=== PATIENT | female | born 1970 | race Caucasian/White ===

== ENCOUNTER → 2016-05-04 | Outpatient (CLI) | payer OTHER ==
[~2016-05-04] MED LIST: ABILIFY2 MG PO; CIPROFLOXACIN 55 M1 OT; ERYTHROMYCIN OPH1 GM OPH; GABAPENTIN100 M2 PO; LEVAQUIN750 M1 PO; PRISTIQ50 MG PO; SEROQUEL25 MG PO; SINGULAIR10 M1 PO; SINGULAIR5 MG PO; VICODIN 5/500 505 MG PO; ZOFRAN ODT4 MG SL; ZYRTEC10 M3 PO
--- NOTE | ~2016-05-04 | PF ---
[place], [place] PULMONARY FUNCTION TEST NAME: DAGO MARTINEZ [facility] #: [id number] UNIT #: [id number] ROOM: DOCTOR: VERNA SAINI MD,JADON BIRTHDATE: [birth year] DOS: 05/04/2016 ORDERED BY: Wesly Dowling, the nurse practitioner. HISTORY: The patient reported 45-year-old female, height of 63 inches, weight of 107 pounds, BMI of 19.0. The patient reported symptoms of productive cough with dyspnea with exertion and frequent wheezing. Tobacco use noted chronic as 1 pack of cigarettes per day for 22 years. SPIROMETRY: The FVC was recorded at 2.69 liters as 76% predicted value, mildly decreased without any improvement occurred postbronchodilator test. The FEV1 recorded 2.31 liters, 81% predicted value without any changes occurred in postbronchodilator test as well. Ratio of FEV1/FVC was recorded 86%. Flow volume loop for patient was assessed and was suggestive of mild obstructive airway pattern. The patient's lung volumes, thoracic gas volume recorded 121%, residual volume of 134%, total lung capacity 111%. RV/TLC ratio of 123%. The lung volume suggestive of mild air trapping as well. The patient's lung diffusion recorded 69%, mildly decreased without correction of carbon monoxide or hemoglobin values. Airway resistance and passive conductance were noted as normal with partial improvement after bronchodilators. FINAL IMPRESSION: The test was suggestive of possibility of very mild reversible obstructive lung disease. JADON GILLESPIE MD CM:PFREPORT:PULMONARY FUNCTION TEST [id number] JADON SAINI MD
== END | disposition home or self-care (01) ==
LOC: CP 10:38
DX: J40 Bronchitis, not specified as acute or chronic (principal)

== ENCOUNTER 2017-05-15 13:56 | Emergency (ER) | payer OTHER ==
[~2017-05-15] VITALS: Ht 157.4 cm; Wt 49.9 kg
[2017-05-15 14:00] VITALS: BP 103/66
[2017-05-15] MEDS ORDERED: LATU40TA1 PO (14:02)
[2017-05-15] MEDS ORDERED: QUETIAPINE FUMA25 MG PO (14:02)
[2017-05-15] MEDS ORDERED: Motrin,Rufen800 MG PO (15:24)
== END 2017-05-15 15:42 | disposition home or self-care (01) ==
LOC: ED 13:56
DX: S62.636A Displaced fracture of distal phalanx of right little finger, initial encounter for closed fracture (principal); F17.200 Nicotine dependence, unspecified, uncomplicated; F10.10 Alcohol abuse, uncomplicated; Z91.041 Radiographic dye allergy status; Z88.2 Allergy status to sulfonamides; Z79.899 Other long term (current) drug therapy; Z98.51 Tubal ligation status; W20.8XXA Other cause of strike by thrown, projected or falling object, initial encounter; Y93.89 Activity, other specified; Y92.89 Other specified places as the place of occurrence of the external cause; Y99.8 Other external cause status

== ENCOUNTER → 2017-10-16 | Outpatient (CLI) | payer OTHER ==
[~2017-10-16] MED LIST changes: +LATU40TA1 PO; +Motrin,Rufen800 MG PO; +QUETIAPINE FUMA25 MG PO
[2017-10-16 10:54] LABS: BASO # 0.1 10*3/uL (0.0-0.1); BASO % 0.9 % (0.0-1.0); EOS # 0.5 10*3/uL (0.0-0.4); EOS % 5.3 % (1.0-4.0); HEMATOCRIT 42.6 % (37.0-47.0); HEMOGLOBIN 13.7 g/dl (12.0-16.0); LYMPH # 2.2 10*3/uL (1.3-4.4); LYMPH % 25.1 % (27.0-41.0); MEAN CELL VOLUME 96.2 fl (81.0-99.0); MEAN CORPUSCULAR HGB 30.9 pg (27.0-31.0); MEAN CORPUSCULAR HGB CONC 32.2 g/dl (33.0-37.0); MEAN PLATELET VOLUME 9.2 fl (9.6-12.3); MONO # 0.5 10*3/uL (0.1-1.0); MONO % 5.2 % (3.0-9.0); NEUT # 5.6 10*3/uL (2.3-7.9); NEUT % 63.3 % (47.0-73.0); PLATELET COUNT AUTOMATED 318 10*3/uL (130-400); RED BLOOD COUNT 4.43 10*6/uL (4.10-5.10); RED CELL DISTRI WIDTH 12.4 % (0-14.5); WHITE BLOOD COUNT 8.9 10*3/uL (4.8-10.8)
[2017-10-16 11:10] LABS: BILIRUBIN NEGATIVE (NEGATIVE); BLOOD 1+ (NEGATIVE); CLARITY SL CLOUDY (CLEAR); COLOR YELLOW (YELLOW); GLUCOSE NEGATIVE (NEGATIVE); KETONE NEGATIVE (NEGATIVE); LEUKO ESTERASE NEGATIVE (NEGATIVE); NITRITE NEGATIVE (NEGATIVE); SPECIFIC GRAVITY 1.025 (1.005-1.030); UROBILINOGEN 0.2 E.U./dl (0.2-1.0)
[2017-10-16 11:20] LABS: MUCOUS 1+
[2017-10-16 11:21] LABS: WBC 0-2 wbc/hpf (0-5)
[2017-10-16 11:22] LABS: ALBUMIN 3.8 gm/dl (3.1-4.5); ALKALINE PHOSPHATASE 83 U/L (45-117); BUN 16 mg/dl (7-24); CHLORIDE 104 mmol/L (98-107); CREATININE 0.83 mg/dL (0.55-1.02); POTASSIUM 4.8 mmol/L (3.5-5.1); SGOT/AST 13 IU/L (3-35); SGPT/ALT 15 U/L (12-78); SODIUM 138 mmol/L (136-145); TOTAL PROTEIN 7.6 gm/dL (6.4-8.2)
== END | disposition home or self-care (01) ==
LOC: LAB 10:25
PROVIDERS: Nurse Practitioner Psychiatric/Mental Health
DX: F31.63 Bipolar disorder, current episode mixed, severe, without psychotic features (principal)

== ENCOUNTER 2018-08-07 13:16 | Emergency (ER) | payer OTHER ==
[~2018-08-07] VITALS: Ht 160 cm; Wt 47.2 kg
[2018-08-07 13:16] VITALS: BP 124/72
[2018-08-07] MEDS ORDERED: DIFLUCAN150 MG PO (15:28)
[2018-08-07] MEDS ORDERED: ZITHROMAX250 MG PO (15:28)
== END 2018-08-07 15:25 | disposition home or self-care (01) ==
LOC: ED 13:16
DX: J40 Bronchitis, not specified as acute or chronic (principal); F17.200 Nicotine dependence, unspecified, uncomplicated; Z79.899 Other long term (current) drug therapy; Z88.2 Allergy status to sulfonamides; Z98.51 Tubal ligation status; Z98.890 Other specified postprocedural states

== ENCOUNTER → 2018-09-10 | Outpatient (CLI) | payer OTHER ==
[~2018-09-10] MED LIST changes: +DIFLUCAN150 MG PO; +ZITHROMAX250 MG PO
[2018-09-10 14:48] LABS: BILIRUBIN NEGATIVE (NEGATIVE); BLOOD TRACE-INTACT (NEGATIVE); CLARITY CLEAR (CLEAR); COLOR YELLOW (YELLOW); GLUCOSE NEGATIVE (NEGATIVE); KETONE NEGATIVE (NEGATIVE); LEUKO ESTERASE NEGATIVE (NEGATIVE); NITRITE NEGATIVE (NEGATIVE); SPECIFIC GRAVITY <= 1.005 (1.005-1.030); UROBILINOGEN 0.2 E.U./dl (0.2-1.0)
[2018-09-10 14:57] LABS: BASO # 0.1 10*3/uL (0.0-0.1); BASO % 0.5 % (0.0-1.0); EOS # 0.2 10*3/uL (0.0-0.4); EOS % 2.3 % (1.0-4.0); HEMATOCRIT 40.3 % (37.0-47.0); HEMOGLOBIN 12.9 g/dl (12.0-16.0); LYMPH # 2.3 10*3/uL (1.3-4.4); LYMPH % 21.4 % (27.0-41.0); MEAN CELL VOLUME 96.2 fl (81.0-99.0); MEAN CORPUSCULAR HGB 30.8 pg (27.0-31.0); MEAN PLATELET VOLUME 9.2 fl (9.6-12.3); MONO # 0.5 10*3/uL (0.1-1.0); MONO % 5.1 % (3.0-9.0); NEUT # 7.4 10*3/uL (2.3-7.9); NEUT % 70.3 % (47.0-73.0); PLATELET COUNT AUTOMATED 338 10*3/uL (130-400); RED BLOOD COUNT 4.19 10*6/uL (4.10-5.10); RED CELL DISTRI WIDTH 13.1 % (0-14.5); WHITE BLOOD COUNT 10.6 10*3/uL (4.8-10.8)
[2018-09-10 15:00] LABS: BACTERIA TRACE; RBC 0-2 rbc/hpf (0-2)
[2018-09-10 15:19] LABS: ALBUMIN 3.9 gm/dl (3.1-4.5); ALKALINE PHOSPHATASE 86 U/L (45-117); BUN 16 mg/dl (7-24); CHLORIDE 103 mmol/L (98-107); CREATININE 0.99 mg/dL (0.55-1.02); POTASSIUM 3.8 mmol/L (3.5-5.1); SGOT/AST 24 IU/L (3-35); SGPT/ALT 21 U/L (12-78); SODIUM 138 mmol/L (136-145); T3 UPTAKE 37 % (31-39); THYROXINE (T4) TOTAL 9.1 ug/dl (4.8-13.9); TOTAL PROTEIN 7.8 gm/dL (6.4-8.2)
== END | disposition home or self-care (01) ==
LOC: LAB 14:12
PROVIDERS: Nurse Practitioner Psychiatric/Mental Health
DX: F31.63 Bipolar disorder, current episode mixed, severe, without psychotic features (principal)

== ENCOUNTER 2019-04-02 13:48 | Emergency (ER) | payer OTHER ==
[~2019-04-02] VITALS: Ht 157.4 cm; Wt 49.9 kg
[2019-04-02 13:54] VITALS: BP 129/75
[2019-04-02] MEDS ORDERED: PROAIR HFA8.5 GM INH (15:45)
[2019-04-02] MEDS ORDERED: TESSALON PERLE100 M1 PO (15:45)
== END 2019-04-02 16:13 | disposition home or self-care (01) ==
LOC: ED 13:48
DX: B34.9 Viral infection, unspecified (principal); J02.9 Acute pharyngitis, unspecified; M79.10 Myalgia, unspecified site; R05 Cough; R53.83 Other fatigue; R63.8 Other symptoms and signs concerning food and fluid intake; J45.909 Unspecified asthma, uncomplicated; F17.200 Nicotine dependence, unspecified, uncomplicated; Z79.899 Other long term (current) drug therapy; Z88.2 Allergy status to sulfonamides

== ENCOUNTER 2019-11-18 15:50 | Emergency (ER) | payer OTHER ==
[~2019-11-18] VITALS: Wt 49.9 kg
[~2019-11-18 15:50] MED LIST changes: +PROAIR HFA8.5 GM INH; +TESSALON PERLE100 M1 PO
[2019-11-18 16:23] LABS: BASO # 0.1 10*3/uL (0.0-0.1); BASO % 0.8 % (0.0-1.0); EOS # 0.2 10*3/uL (0.0-0.4); EOS % 2.5 % (1.0-4.0); HEMATOCRIT 38.2 % (37.0-47.0); LYMPH # 2.6 10*3/uL (1.3-4.4); LYMPH % 32.5 % (27.0-41.0); MEAN CELL VOLUME 93.6 fl (81.0-99.0); MEAN CORPUSCULAR HGB 30.4 pg (27.0-31.0); MEAN CORPUSCULAR HGB CONC 32.5 g/dl (33.0-37.0); MEAN PLATELET VOLUME 9.1 fl (9.6-12.3); MONO # 0.5 10*3/uL (0.1-1.0); MONO % 5.7 % (3.0-9.0); NEUT # 4.6 10*3/uL (2.3-7.9); NEUT % 58.2 % (47.0-73.0); PLATELET COUNT AUTOMATED 338 10*3/uL (130-400); RED BLOOD COUNT 4.08 10*6/uL (4.10-5.10); RED CELL DISTRI WIDTH 12.8 % (0-14.5); WHITE BLOOD COUNT 7.9 10*3/uL (4.8-10.8)
[2019-11-18 16:39] LABS: ALBUMIN 3.5 gm/dl (3.1-4.5); ALKALINE PHOSPHATASE 84 U/L (45-117); BUN 11 mg/dl (7-24); CHLORIDE 109 mmol/L (98-107); CREATININE 1.12 mg/dL (0.55-1.02); POTASSIUM 4.4 mmol/L (3.5-5.1); SGOT/AST 18 IU/L (3-35); SGPT/ALT 23 U/L (12-78); SODIUM 140 mmol/L (136-145); TOTAL PROTEIN 7.2 gm/dL (6.4-8.2)
[2019-11-18 17:04] VITALS: BP 130/72
[2019-11-18] MEDS ORDERED: VISTARIL25 MG PO (17:04)
== END 2019-11-18 17:05 | disposition home or self-care (01) ==
LOC: ED 15:50
PROVIDERS: Nurse Practitioner Family
DX: F41.9 Anxiety disorder, unspecified (principal); J45.909 Unspecified asthma, uncomplicated; Z88.2 Allergy status to sulfonamides; Z79.899 Other long term (current) drug therapy

== ENCOUNTER 2020-02-11 18:35 | Emergency (ER) | payer OTHER ==
[~2020-02-11] VITALS: Ht 160 cm; Wt 54.4 kg
[~2020-02-11 18:35] MED LIST changes: +VISTARIL25 MG PO
[2020-02-11 18:42] VITALS: BP 136/94
== END 2020-02-11 19:41 | disposition home or self-care (01) ==
LOC: ED 18:35
DX: F41.9 Anxiety disorder, unspecified (principal); Z20.828 Contact with and (suspected) exposure to other viral communicable diseases; Z88.2 Allergy status to sulfonamides; Z79.899 Other long term (current) drug therapy

== ENCOUNTER 2020-09-14 21:03 | Emergency (ER) | payer OTHER | END 2020-09-14 23:58 | disposition left against medical advice (07) | LOC: ED 21:03 | DX: H92.20 Otorrhagia, unspecified ear (principal); Z53.21 Procedure and treatment not carried out due to patient leaving prior to being seen by health care provider ==

== ENCOUNTER → 2020-11-08 | Outpatient (CLI) | payer OTHER ==
[2020-11-08 12:59] LABS: BASO # 0.1 10*3/uL (0.0-0.1); BASO % 0.9 % (0.0-1.0); EOS # 0.3 10*3/uL (0.0-0.4); EOS % 4.3 % (1.0-4.0); HEMATOCRIT 40.6 % (37.0-47.0); LYMPH # 2.5 10*3/uL (1.3-4.4); LYMPH % 32.4 % (27.0-41.0); MEAN CELL VOLUME 95.5 fl (81.0-99.0); MEAN CORPUSCULAR HGB 30.6 pg (27.0-31.0); MEAN PLATELET VOLUME 8.9 fl (9.6-12.3); MONO # 0.5 10*3/uL (0.1-1.0); MONO % 6.6 % (3.0-9.0); NEUT # 4.4 10*3/uL (2.3-7.9); NEUT % 55.7 % (47.0-73.0); PLATELET COUNT AUTOMATED 405 10*3/uL (130-400); RED BLOOD COUNT 4.25 10*6/uL (4.10-5.10); RED CELL DISTRI WIDTH 12.7 % (0-14.5); RETICULOCYTE % 0.94 % (0.50-2.50); WHITE BLOOD COUNT 7.9 10*3/uL (4.8-10.8)
[2020-11-08 13:02] LABS: BILIRUBIN Negative (Negative); BLOOD Negative (Negative); CLARITY Cloudy (Clear); COLOR Yellow (Yellow); GLUCOSE Negative (Negative); KETONE Trace (Negative); LEUKO ESTERASE 2+ (Negative); NITRITE Negative (Negative); SPECIFIC GRAVITY 1.025 (1.001-1.030)
[2020-11-08 13:11] LABS: BACTERIA 2+; RBC 0-2 rbc/hpf (0-2)
[2020-11-08 13:12] LABS: HYALINE CAST 0-2; MUCOUS TRACE; URIC ACID CRYSTALS N
[2020-11-08 13:13] LABS: ALBUMIN 3.7 gm/dl (3.1-4.5); ALKALINE PHOSPHATASE 86 U/L (45-117); BUN 14 mg/dl (7-24); CHLORIDE 108 mmol/L (98-107); CHOLESTEROL 172 mg/dL (<200); CREATININE 0.87 mg/dL (0.55-1.02); GAMMA GLUTAMYL TRANSPEPTIDASE 17 U/L (5-55); IRON 56 ug/dL (50-170); LDL CHOLESTEROL 98 mg/dL (9-159); POTASSIUM 4.4 mmol/L (3.5-5.1); SGOT/AST 15 IU/L (3-35); SGPT/ALT 15 U/L (12-78); SODIUM 139 mmol/L (136-145); T3 UPTAKE 33 % (31-39); THYROXINE (T4) TOTAL 8.5 ug/dl (4.8-13.9); TOTAL IRON BINDING CAPACITY 322 ug/dl (250-450); TOTAL PROTEIN 8.2 gm/dL (6.4-8.2); TRIGLYCERIDES 88 mg/dl (<150); URIC ACID 2.7 mg/dL (2.6-6.0)
[2020-11-08 13:43] LABS: FERRITIN 82.5 ng/mL (10.0-291.0); VITAMIN D, 25-HYDROXY 30.5 ng/mL (30-100)
[2020-11-09 08:07] LABS: RHEUMATOID ARTHRITIS FACTOR <10.0 IU/mL (0.0-13.9)
[2020-11-09 14:08] LABS: ANTI-DSDNA ANTIBODIES 1 IU/mL (0-9)
== END | disposition home or self-care (01) ==
LOC: LAB 12:37
PROVIDERS: ATTEND Family Medicine
DX: E78.5 Hyperlipidemia, unspecified (principal); R79.89 Other specified abnormal findings of blood chemistry; R53.83 Other fatigue; E55.9 Vitamin D deficiency, unspecified

== ENCOUNTER 2021-02-09 15:01 | Emergency (ER) | payer OTHER ==
[~2021-02-09] VITALS: Ht 160 cm; Wt 51.3 kg
== END 2021-02-09 18:44 | disposition home or self-care (01) ==
LOC: ED 15:01
DX: R53.83 Other fatigue (principal); Z20.822 Contact with and (suspected) exposure to COVID-19; Z88.2 Allergy status to sulfonamides; Z79.899 Other long term (current) drug therapy; R51.9 Headache, unspecified

== ENCOUNTER → 2021-10-14 | Outpatient (CLI) | payer OTHER ==
[2021-10-14 14:50] LABS: BASO # 0.1 10*3/uL (0.0-0.1); BASO % 0.8 % (0.0-1.0); EOS # 0.2 10*3/uL (0.0-0.4); EOS % 2.5 % (1.0-4.0); HEMATOCRIT 41.2 % (37.0-47.0); LYMPH # 2.6 10*3/uL (1.3-4.4); LYMPH % 30.4 % (27.0-41.0); MEAN CELL VOLUME 95.2 fl (81.0-99.0); MEAN CORPUSCULAR HGB 30.5 pg (27.0-31.0); MEAN PLATELET VOLUME 10.3 fl (9.6-12.3); MONO # 0.5 10*3/uL (0.1-1.0); MONO % 6.4 % (3.0-9.0); NEUT % 59.5 % (47.0-73.0); PLATELET COUNT AUTOMATED 190 10*3/uL (130-400); RED BLOOD COUNT 4.33 10*6/uL (4.10-5.10); RED CELL DISTRI WIDTH 12.9 % (0-14.5); RETICULOCYTE % 1.43 % (0.50-2.50); WHITE BLOOD COUNT 8.4 10*3/uL (4.8-10.8)
[2021-10-14 14:55] LABS: BILIRUBIN Negative (Negative); BLOOD 1+ (Negative); CLARITY Clear (Clear); COLOR Yellow (Yellow); GLUCOSE Negative (Negative); KETONE Trace (Negative); LEUKO ESTERASE Negative (Negative); NITRITE Negative (Negative); PH 5.5 (4.5-8.0); SPECIFIC GRAVITY >= 1.030 (1.001-1.030)
[2021-10-14 15:20] LABS: BACTERIA 2+; HYALINE CAST 0-2; MUCOUS 2+
[2021-10-14 15:29] LABS: FERRITIN 87.3 ng/mL (10.0-291.0)
[2021-10-14 15:49] LABS: ALKALINE PHOSPHATASE 92 U/L (45-117); BUN 17 mg/dl (7-24); CHLORIDE 110 mmol/L (98-107); CHOLESTEROL 162 mg/dL (<200); CREATININE 0.83 mg/dL (0.55-1.02); GAMMA GLUTAMYL TRANSPEPTIDASE 14 U/L (5-55); IRON 104 ug/dL (50-170); LDL CHOLESTEROL 87 mg/dL (9-159); POTASSIUM 4.2 mmol/L (3.5-5.1); SGOT/AST 16 IU/L (3-35); SGPT/ALT 17 U/L (12-78); SODIUM 141 mmol/L (136-145); T3 UPTAKE 34 % (31-39); THYROXINE (T4) TOTAL 8.7 ug/dl (4.8-13.9); TOTAL PROTEIN 7.9 gm/dL (6.4-8.2); TRIGLYCERIDES 153 mg/dl (<150)
[2021-10-14 15:55] LABS: THYROID STIM HORMONE (HS) 0.933 uIU/ml (0.358-4.75)
== END | disposition home or self-care (01) ==
LOC: LAB 14:14
PROVIDERS: ATTEND Family Medicine
DX: R79.89 Other specified abnormal findings of blood chemistry (principal); R53.83 Other fatigue; E78.5 Hyperlipidemia, unspecified; R74.8 Abnormal levels of other serum enzymes; E55.9 Vitamin D deficiency, unspecified

== ENCOUNTER → 2021-11-03 | Outpatient (CLI) | payer OTHER ==
[2021-11-03 17:37] LABS: BILIRUBIN Negative (Negative); BLOOD 1+ (Negative); CLARITY Clear (Clear); COLOR Yellow (Yellow); GLUCOSE Negative (Negative); KETONE Trace (Negative); LEUKO ESTERASE Trace (Negative); NITRITE Negative (Negative); PH 5.5 (4.5-8.0); SPECIFIC GRAVITY 1.025 (1.001-1.030)
[2021-11-03 17:45] LABS: BACTERIA 1+; RBC 16-20 rbc/hpf (0-2)
== END | disposition home or self-care (01) ==
LOC: LAB 17:12
PROVIDERS: ATTEND Family Medicine
DX: J44.9 Chronic obstructive pulmonary disease, unspecified (principal); E78.5 Hyperlipidemia, unspecified; E55.9 Vitamin D deficiency, unspecified; R79.89 Other specified abnormal findings of blood chemistry; R53.83 Other fatigue; R74.8 Abnormal levels of other serum enzymes

== ENCOUNTER → 2022-09-11 | Outpatient (CLI) | payer OTHER ==
[2022-09-11 16:50] LABS: BILIRUBIN Negative (Negative); BLOOD Trace-Lysed (Negative); CLARITY Clear (Clear); COLOR Yellow (Yellow); GLUCOSE Negative (Negative); KETONE Negative (Negative); LEUKO ESTERASE Negative (Negative); NITRITE Negative (Negative); SPECIFIC GRAVITY 1.025 (1.001-1.030); UROBILINOGEN 0.2 E.U./dl (0.0-1.0)
[2022-09-11 16:51] LABS: HEMATOCRIT 39.4 % (37.0-47.0); MEAN CELL VOLUME 91.4 fl (81.0-99.0); MEAN CORPUSCULAR HGB 30.2 pg (27.0-31.0); PLATELET COUNT AUTOMATED 350 10*3/uL (130-400); RED BLOOD COUNT 4.31 10*6/uL (4.10-5.10); RED CELL DISTRI WIDTH 12.8 % (0-14.5); RETICULOCYTE % 1.33 % (0.50-2.50); WHITE BLOOD COUNT 8.2 10*3/uL (4.8-10.8)
[2022-09-11 17:01] LABS: BACTERIA 1+; MUCOUS 2+
[2022-09-11 17:23] LABS: TOTAL CELLS COUNTED 100 #CELLS
[2022-09-11 17:24] LABS: PLATELET SUFFICIENCY NORMAL (NORMAL)
[2022-09-11 17:28] LABS: ALKALINE PHOSPHATASE 85 U/L (46-116); BUN 13 mg/dl (9-23); CHLORIDE 113 mmol/L (98-107); CHOLESTEROL 150 mg/dL (<200); GAMMA GLUTAMYL TRANSPEPTIDASE 18 U/L (0-73); LDL CHOLESTEROL 82 mg/dL (9-159); POTASSIUM 3.8 mmol/L (3.4-5.1); SGPT/ALT 10 U/L (10-49); T3 UPTAKE 21.9 % (22.4-36.7); TOTAL PROTEIN 7.8 gm/dL (6.0-8.0); TRIGLYCERIDES 107 mg/dl (<150); URIC ACID 3.9 mg/dL (3.1-7.8)
[2022-09-11 17:49] LABS: VITAMIN D, 25-HYDROXY 39.8 ng/mL (30-100)
[2022-09-12 07:07] LABS: TOTAL PROTEIN, SERUM 7.2 g/dL (6.0-8.5)
[2022-09-12 12:07] LABS: HBSAG Negative (Negative); HEP B CORE AB, IGM Negative (Negative); HEPATITIS C ANTIBODY Non Reactive (Non Reactive)
[2022-09-12 14:08] LABS: A/G RATIO 1.1 (0.7-1.7); ALBUMIN 3.8 g/dL (2.9-4.4); ALPHA-1-GLOBULIN 0.3 g/dL (0.0-0.4); ALPHA-2-GLOBULIN 0.9 g/dL (0.4-1.0); GAMMA GLOBULIN 1.2 g/dL (0.4-1.8); GLOBULIN, TOTAL 3.4 g/dL (2.2-3.9); M-SPIKE Not Observed g/dL (Not Observed)
[2022-09-13 15:56] LABS: ANTI-DSDNA ANTIBODIES <1 IU/mL (0-9)
== END | disposition home or self-care (01) ==
LOC: LAB 16:24
PROVIDERS: ATTEND Family Medicine
DX: E78.5 Hyperlipidemia, unspecified (principal); R06.02 Shortness of breath; M51.34 Other intervertebral disc degeneration, thoracic region; E55.9 Vitamin D deficiency, unspecified; R79.89 Other specified abnormal findings of blood chemistry; R53.83 Other fatigue; R74.8 Abnormal levels of other serum enzymes

== ENCOUNTER → 2022-09-26 | Outpatient (CLI) | payer OTHER | END | disposition home or self-care (01) | LOC: CT 12:52 | PROVIDERS: ATTEND Family Medicine | DX: J43.2 Centrilobular emphysema (principal); R91.1 Solitary pulmonary nodule ==

== ENCOUNTER → 2022-11-17 | Outpatient (CLI) | payer OTHER ==
[2022-11-17 12:14] LABS: BILIRUBIN Negative (Negative); BLOOD Negative (Negative); CLARITY Clear (Clear); COLOR Yellow (Yellow); GLUCOSE Negative (Negative); KETONE Negative (Negative); LEUKO ESTERASE Negative (Negative); NITRITE Negative (Negative); SPECIFIC GRAVITY <= 1.005 (1.001-1.030); UROBILINOGEN 0.2 E.U./dl (0.0-1.0)
[2022-11-17 12:36] LABS: BUN 7 mg/dl (9-23); CHLORIDE 111 mmol/L (98-107); POTASSIUM 3.8 mmol/L (3.4-5.1)
[2022-11-17 12:48] LABS: BACTERIA 2+; EPITHELIAL CELLS 16-20
== END | disposition home or self-care (01) ==
LOC: LAB 11:00
PROVIDERS: ATTEND Internal Medicine Nephrology
DX: R94.4 Abnormal results of kidney function studies (principal)

== ENCOUNTER → 2023-01-12 | Outpatient (CLI) | payer OTHER | END | disposition home or self-care (01) | LOC: LAB 14:38 | PROVIDERS: ATTEND Nurse Practitioner Family | DX: Z79.899 Other long term (current) drug therapy (principal) ==

== ENCOUNTER → 2023-03-01 | Outpatient (CLI) | payer OTHER | END | disposition home or self-care (01) | LOC: CT 02-12 10:00 → LAB 01:11 → CT 11:00 → LAB 11:00 | PROVIDERS: ATTEND Internal Medicine Critical Care Medicine | DX: J43.2 Centrilobular emphysema (principal); J98.11 Atelectasis; J45.20 Mild intermittent asthma, uncomplicated; R91.1 Solitary pulmonary nodule; Z87.891 Personal history of nicotine dependence ==

== ENCOUNTER → 2024-04-28 | Outpatient (CLI) | payer OTHER | END | disposition home or self-care (01) | LOC: US 10:30 | PROVIDERS: ATTEND Family Medicine | DX: M47.27 Other spondylosis with radiculopathy, lumbosacral region (principal); G95.89 Other specified diseases of spinal cord; M79.604 Pain in right leg; M79.605 Pain in left leg; M54.50 Low back pain, unspecified; M79.89 Other specified soft tissue disorders; J44.9 Chronic obstructive pulmonary disease, unspecified; J43.9 Emphysema, unspecified; M51.17 Intervertebral disc disorders with radiculopathy, lumbosacral region; M48.07 Spinal stenosis, lumbosacral region ==

== ENCOUNTER → 2024-05-20 | Outpatient (CLI) | payer OTHER ==
[2024-05-20 11:30] LABS: BASO # 0.1 10*3/uL (0.0-0.1); BASO % 0.7 % (0.0-1.0); EOS # 0.3 10*3/uL (0.0-0.4); EOS % 4.1 % (1.0-4.0); HEMATOCRIT 36.7 % (37.0-47.0); MEAN CELL VOLUME 92.7 fl (81.0-99.0); MEAN CORPUSCULAR HGB 29.8 pg (27.0-31.0); MEAN CORPUSCULAR HGB CONC 32.2 g/dl (33.0-37.0); MONO # 0.4 10*3/uL (0.1-1.0); MONO % 6.2 % (3.0-9.0); NEUT # 3.4 10*3/uL (2.3-7.9); NEUT % 48.6 % (47.0-73.0); PLATELET COUNT AUTOMATED 330 10*3/uL (130-400); RED BLOOD COUNT 3.96 10*6/uL (4.10-5.10); RED CELL DISTRI WIDTH 12.9 % (0-14.5); RETICULOCYTE % 1.07 % (0.50-2.50); WHITE BLOOD COUNT 7.1 10*3/uL (4.8-10.8)
[2024-05-20 11:35] LABS: BILIRUBIN Negative (Negative); BLOOD Negative (Negative); CLARITY Clear (Clear); COLOR Yellow (Yellow); GLUCOSE Negative (Negative); KETONE Negative (Negative); LEUKO ESTERASE Trace (Negative); NITRITE Negative (Negative); PH 6.5 (4.5-8.0); SPECIFIC GRAVITY 1.025 (1.001-1.030)
[2024-05-20 11:43] LABS: BACTERIA 2+; EPITHELIAL CELLS 16-20
[2024-05-20 11:56] LABS: ALKALINE PHOSPHATASE 107 U/L (46-116); BUN 17 mg/dl (9-23); CHLORIDE 109 mmol/L (98-107); CHOLESTEROL 154 mg/dL (<200); GAMMA GLUTAMYL TRANSPEPTIDASE 13 U/L (0-73); LDL CHOLESTEROL 89 mg/dL (9-159); POTASSIUM 4.3 mmol/L (3.4-5.1); SGPT/ALT 11 U/L (5-49); T3 UPTAKE 31.6 % (22.4-36.7); THYROXINE (T4) TOTAL 7.5 ug/dl (4.5-10.9); TOTAL PROTEIN 7.2 gm/dL (6.0-8.0); TRIGLYCERIDES 70 mg/dl (<150)
[2024-05-20 12:11] LABS: VITAMIN D, 25-HYDROXY 34.3 ng/mL (30-100)
[2024-05-21 12:07] LABS: ANTI-DSDNA ANTIBODIES <1 IU/mL (0-9)
== END | disposition home or self-care (01) ==
LOC: LAB 11:08
PROVIDERS: ATTEND Family Medicine
DX: R79.89 Other specified abnormal findings of blood chemistry (principal); R53.83 Other fatigue; E78.5 Hyperlipidemia, unspecified; E55.9 Vitamin D deficiency, unspecified

== ENCOUNTER 2024-07-01 11:24 | Emergency (ER) | payer OTHER ==
[~2024-07-01] VITALS: Ht 162.5 cm; Wt 49.0 kg
[2024-07-01] MEDS ORDERED: Lidocaine Hydrochloride 15 ML UDC PO ONE (13:00)
[2024-07-01] MEDS ORDERED: Pantoprazole Sodium 40 MG TAB PO ONE (13:05)
[2024-07-01] MEDS ORDERED: SUCRALFATE 1 GM TAB PO ONE (13:05)
[2024-07-01] MEDS ORDERED: MG-AL HYDROXIDE/SIMETICONE 30 ML UDC PO STA (13:11)
[2024-07-01] MEDS ORDERED: Dicyclomine Hydrochloride 20 MG/10 ML OSYR PO STA (13:11)
[2024-07-01] MEDS ORDERED: CARAFATE1 G1 PO (13:17)
[2024-07-01 13:18] VITALS: BP 148/96
== END 2024-07-01 13:29 | disposition home or self-care (01) ==
LOC: ED 11:24
DX: K20.90 Esophagitis, unspecified without bleeding (principal); K21.9 Gastro-esophageal reflux disease without esophagitis; M79.676 Pain in unspecified toe(s); J02.9 Acute pharyngitis, unspecified; Z91.041 Radiographic dye allergy status; Z88.2 Allergy status to sulfonamides; Z79.899 Other long term (current) drug therapy; Z98.890 Other specified postprocedural states

== ENCOUNTER → 2024-07-30 | Outpatient (CLI) | payer OTHER ==
[~2024-07-30] MED LIST changes: +CARAFATE1 G1 PO
[2024-07-31 17:07] LABS: ANTI-DSDNA ANTIBODIES <1 IU/mL (0-9)
== END | disposition home or self-care (01) ==
LOC: LAB 11:49
PROVIDERS: ATTEND Nurse Practitioner Family
DX: M35.9 Systemic involvement of connective tissue, unspecified (principal)

== ENCOUNTER 2024-09-24 11:26 | Emergency (ER) | payer OTHER ==
[~2024-09-24] VITALS: Ht 160 cm; Wt 49.9 kg
[2024-09-24 11:31] VITALS: BP 127/88
[2024-09-24] MEDS ORDERED: NYSTATIN CREAM15 GM T (11:52)
[2024-09-24] MEDS ORDERED: METRONIDAZOLE500 M1 PO (11:52)
[2024-09-24] MEDS ORDERED: FLUONAZOLE150 M1 PO (11:52)
[2024-09-24] MEDS ORDERED: metroNIDAZOLE 500 MG TAB PO ONE (11:55)
[2024-09-24] MEDS ORDERED: NYSTATIN OINTMENT 15 GM TUBE T ONE (11:55)
[2024-09-24] MEDS ORDERED: FLUCONAZOLE 150 MG TAB PO ONE (11:55)
== END 2024-09-24 12:28 | disposition home or self-care (01) ==
LOC: ED 11:26
DX: N76.0 Acute vaginitis (principal); F41.9 Anxiety disorder, unspecified; K21.9 Gastro-esophageal reflux disease without esophagitis; Z88.1 Allergy status to other antibiotic agents; Z88.8 Allergy status to other drugs, medicaments and biological substances